=== PATIENT | male | born 1975 | race Caucasian/White ===

== ENCOUNTER 2022-06-21 11:52 | Inpatient (IN) ==
[2022-06-21] MEDS ORDERED: 0.9 % Sodium Chloride 500 ML IVC ONE ×3 (12:14→14:45)
[2022-06-21] MEDS ORDERED: 0.9 % Sodium Chloride 1,000 ML IVC ONE (12:59)
[2022-06-21 13:05] LABS: Basophils # 0.2 K/mcL (0.0-0.2); Basophils % 1.3 %; Eosinophils # 0.3 K/mcL (0.0-0.6); Eosinophils % 2.1 %; Hemoglobin 14.5 g/dL (12.9-16.9); Lymphocytes # 2.8 K/mcL (0.6-4.6); Mean Corpuscular HGB Conc 34.5 g/dL (31.6-35.5); Mean Corpuscular Volume 81.2 fL (83.0-100.0); Mean Platelet Volume 9.8 fL (9.4-12.4); Monocytes # 1.2 K/mcL (0.0-1.3); Monocytes % 10.3 %; Platelet Count 347 K/mcL (140-400); Red Blood Count 5.17 M/mcL (4.19-5.50); Red Cell Distribution Width 12.5 % (11.5-14.5); Segmented Neutrophils % 59.3 %; White Blood Count 11.8 K/mcL (4.3-11.1)
[2022-06-21 13:43] LABS: Calcium 9.3 mg/dL (8.6-10.3); Potassium 4.1 mEq/L (3.5-5.1)
[2022-06-21 13:44] LABS: Troponin I 0.03 ng/mL (< 0.04)
[2022-06-21] MEDS ORDERED: Norepinephrine 4 MG/254 ML IV.SOLN IVC ONE (14:10)
[2022-06-21] MEDS ORDERED: Norepinephrine 4 MG/254 ML IV.SOLN IVC SCH (14:15)
[2022-06-21] MEDS ORDERED: levoFLOXacin 750 MG/150 ML 750 MG/150 ML BAG IVPB ONE (14:24)
[2022-06-21] MEDS ORDERED: Lidocaine -MPF 1% 5 ML AMPUL INFILT ONE (14:25)
[2022-06-21] MEDS ORDERED: 0.9 % Sodium Chloride 500 ML ONE (14:37)
[2022-06-21] MEDS ORDERED: Ondansetron 4 MG/2 ML VIAL IVP PRN (16:30)
[2022-06-21] MEDS ORDERED: Naloxone 0.4 MG/ML INJ IVP PRN (16:30)
[2022-06-21] MEDS ORDERED: Dextrose Gel 15 GM/37.5 ML TUBE PO PRN ×2 (16:33)
[2022-06-21] MEDS ORDERED: D5% in Water 1,000 ML IVC PRN (16:33)
[2022-06-21 16:42] LABS: Influenza A PCR Negative (Negative); Influenza B PCR Negative (Negative); Resp. Syncytial Virus PCR Negative (Negative); SARS-CoV-2 by PCR (In House) Negative (Negative)
[2022-06-21] MEDS: Ringers Solution, Lactated 1,000 ML IVC SCH ×2 (19:00→20:56)
[2022-06-21] MEDS: Insulin LISPRO 300 UNITS/3 ML VIAL SUBQ SCH (19:18)
[2022-06-21] MEDS: *HR* Dextrose 50 % in Water (Syg) 50 ML SYRINGE IVP PRN ×2 (20:03→23:58)
[2022-06-21] MEDS: *HR* Heparin 5,000 UNIT/ML VIAL SQ SCH (22:32)
[2022-06-22] MEDS ORDERED: D5% in Lactated Ringers 1,000 ML IVC SCH ×2 (00:15→09:45)
[2022-06-22] MEDS: *HR* Dextrose 50 % in Water (Syg) 50 ML SYRINGE IVP PRN ×3 (02:35→10:05)
[2022-06-22 02:59] LABS: Basophils # 0.1 K/mcL (0.0-0.2); Basophils % 0.6 %; Eosinophils # 0.1 K/mcL (0.0-0.6); Eosinophils % 1.4 %; Hematocrit 29.5 % (37.5-50.1); Immature Granulocytes % 2.6 % (0-4); Lymphocytes # 1.5 K/mcL (0.6-4.6); Lymphocytes % 16.5 %; Mean Corpuscular HGB Conc 35.3 g/dL (31.6-35.5); Mean Corpuscular Hemoglobin 28.3 pg (28.0-33.3); Mean Corpuscular Volume 80.2 fL (83.0-100.0); Mean Platelet Volume 9.6 fL (9.4-12.4); Monocytes % 10.2 %; Neutrophils # 6.4 K/mcL (1.6-8.9); Platelet Count 235 K/mcL (140-400); Red Blood Count 3.68 M/mcL (4.19-5.50); Red Cell Distribution Width 12.2 % (11.5-14.5); Segmented Neutrophils % 68.7 %; White Blood Count 9.3 K/mcL (4.3-11.1)
[2022-06-22 03:15] LABS: Hemoglobin 10.4 g/dL (12.9-16.9)
[2022-06-22 03:17] LABS: Calcium 7.6 mg/dL (8.6-10.3); Magnesium 1.4 mg/dL (1.6-2.6); Phosphorous 3.9 mg/dL (2.7-4.5); Potassium 3.6 mEq/L (3.5-5.1)
[2022-06-22] MEDS ORDERED: Magnesium Sulfate 1 GM/102 ML PIGGYBACK IVPB ONE (03:20)
[2022-06-22] MEDS: *HR* Heparin 5,000 UNIT/ML VIAL SQ SCH ×2 (05:25→17:51)
[2022-06-22] MEDS ORDERED: Prochlorperazine 10 MG/2 ML VIAL IVP PRN (07:55)
[2022-06-22] MEDS: Insulin LISPRO 300 UNITS/3 ML VIAL SUBQ SCH ×4 (08:05→19:42)
[2022-06-22] MEDS ORDERED: Octreotide 50 MCG/ML INJ IVP ONE (09:38)
[2022-06-22] MEDS: Cyanocobalamin (B-12) 1,000 MCG TABLET PO SCH (09:56)
[2022-06-22] MEDS ORDERED: 0.9 % Sodium Chloride 250 ML IVC PRN (10:02)
[2022-06-22] MEDS ORDERED: 0.9 % Sodium Chloride 2,000 ML PRIME SCH (10:15)
[2022-06-22] MEDS: Octreotide 400 MCG in 0.9 % Sodium Chloride 100 ML IVC SCH (10:15)
[2022-06-22] MEDS ORDERED: *HR* Heparin 5,000 UNIT/ML VIAL ONE (13:27)
[2022-06-22] MEDS ORDERED: *HR* Heparin 10,000 UNIT/10 ML VIAL IV PRN (15:25)
[2022-06-22 15:57] LABS: Hepatitis B Surface Antibody < 3.10 mIU/mL
[2022-06-22 16:07] LABS: Hepatitis B Surface Antigen Nonreactive (Nonreactive)
[2022-06-22] MEDS: D5% in Lactated Ringers 1,000 ML IVC SCH (19:08)
[2022-06-22 20:54] LABS: Bilirubin,Urine Negative (Negative); Blood,Urine Negative (Negative); Clarity,Urine Clear (Clear); Color,Urine Light-Yellow (Yellow); Glucose,Urine (UA) 50 mg/dL (Normal); Hyaline Casts,Urine Few per lpf (None Seen); Ketones,Urine Negative (Negative); Leukocyte Esterase,Urine Negative (Negative); Mucus,Urine Few per lpf (None-Few); Nitrite,Urine Negative (Negative); PH,Urine 5.5 pH Units (5.0-8.0); Protein,Urine Trace mg/dL (Neg-Trace); RBC,Urine 0-3 per hpf (0-3); Specific Gravity,Urine 1.008 (1.010-1.025); Squamous Epithelial Cell,Urine Few per hpf (None-Few); Urobilinogen,Urine Normal (Normal)
[2022-06-22 21:07] LABS: Amphetamine Screen,Urine Negative ng/mL (Cutoff=1000); Barbiturate Screen,Urine Negative ng/mL (Cutoff=200); Benzodiazepines Screen,Urine Negative ng/mL (Cutoff=200); Cannabinoid Screen,Urine Positive ng/mL (Cutoff = 50); Cocaine Screen,Urine Negative ng/mL (Cutoff= 300); Opiate Screen,Urine Negative ng/mL (Cutoff=300); Phencyclidine Screen,Urine Negative ng/mL (Cutoff=25)
[2022-06-23] MEDS: D5% in Lactated Ringers 1,000 ML IVC SCH (02:34)
[2022-06-23 03:24] LABS: Hematocrit 27.9 % (37.5-50.1); Mean Corpuscular HGB Conc 35.8 g/dL (31.6-35.5); Mean Corpuscular Hemoglobin 28.4 pg (28.0-33.3); Mean Corpuscular Volume 79.3 fL (83.0-100.0); Mean Platelet Volume 9.4 fL (9.4-12.4); Platelet Count 244 K/mcL (140-400); Red Blood Count 3.52 M/mcL (4.19-5.50); Red Cell Distribution Width 12.2 % (11.5-14.5)
[2022-06-23 03:40] LABS: Calcium 7.9 mg/dL (8.6-10.3); Magnesium 1.6 mg/dL (1.6-2.6); Potassium 4.2 mEq/L (3.5-5.1)
[2022-06-23 03:42] LABS: Albumin 3.3 g/dL (3.5-5.7); Albumin/Globulin Ratio 1.7 (1.1-2.2); Bilirubin,Direct 0.1 mg/dL (0.0-0.2); Bilirubin,Indirect 0.4 mg/dL (0.0-1.0); Bilirubin,Total 0.5 mg/dL (0.3-1.0); Total Protein 5.3 g/dL (6.4-8.9)
[2022-06-23] MEDS: *HR* Heparin 5,000 UNIT/ML VIAL SQ SCH ×2 (05:23→22:09)
[2022-06-23] MEDS ORDERED: 0.9 % Sodium Chloride 250 ML IVC PRN (07:29)
[2022-06-23] MEDS: Octreotide 400 MCG in 0.9 % Sodium Chloride 100 ML IVC SCH ×2 (09:51→23:32)
[2022-06-23] MEDS: Insulin LISPRO 300 UNITS/3 ML VIAL SUBQ SCH ×4 (09:53→21:21)
[2022-06-23] MEDS: Cyanocobalamin (B-12) 1,000 MCG TABLET PO SCH (10:24)
[2022-06-23] MEDS ORDERED: *HR* Heparin 10,000 UNIT/10 ML VIAL IV PRN (18:19)
[2022-06-24 04:23] LABS: Hematocrit 27.9 % (37.5-50.1); Hemoglobin 9.9 g/dL (12.9-16.9); Mean Corpuscular HGB Conc 35.5 g/dL (31.6-35.5); Mean Corpuscular Hemoglobin 28.3 pg (28.0-33.3); Mean Corpuscular Volume 79.7 fL (83.0-100.0); Mean Platelet Volume 9.1 fL (9.4-12.4); Platelet Count 250 K/mcL (140-400); Red Cell Distribution Width 12.1 % (11.5-14.5)
[2022-06-24 04:37] LABS: Calcium 8.3 mg/dL (8.6-10.3); Magnesium 1.8 mg/dL (1.6-2.6); Potassium 3.7 mEq/L (3.5-5.1)
[2022-06-24] MEDS: *HR* Heparin 5,000 UNIT/ML VIAL SQ SCH ×2 (06:03→17:23)
[2022-06-24] MEDS: Magnesium Oxide 400 MG TABLET PO SCH (09:46)
[2022-06-24] MEDS: Cyanocobalamin (B-12) 1,000 MCG TABLET PO SCH (09:46)
[2022-06-24] MEDS: Insulin LISPRO 300 UNITS/3 ML VIAL SUBQ SCH ×4 (09:55→20:59)
[2022-06-25 03:46] LABS: Hemoglobin 10.8 g/dL (12.9-16.9); Mean Corpuscular Hemoglobin 28.6 pg (28.0-33.3); Mean Corpuscular Volume 79.6 fL (83.0-100.0); Mean Platelet Volume 9.3 fL (9.4-12.4); Platelet Count 281 K/mcL (140-400); Red Blood Count 3.77 M/mcL (4.19-5.50); Red Cell Distribution Width 12.2 % (11.5-14.5); White Blood Count 8.5 K/mcL (4.3-11.1)
[2022-06-25 04:03] LABS: Calcium 8.3 mg/dL (8.6-10.3); Potassium 3.5 mEq/L (3.5-5.1)
[2022-06-25] MEDS: *HR* Heparin 5,000 UNIT/ML VIAL SQ SCH (05:17)
[2022-06-25] MEDS: Magnesium Oxide 400 MG TABLET PO SCH (07:27)
[2022-06-25] MEDS: Cyanocobalamin (B-12) 1,000 MCG TABLET PO SCH (07:27)
[2022-06-25] MEDS: Insulin LISPRO 300 UNITS/3 ML VIAL SUBQ SCH ×2 (07:28→12:06)
[2022-06-25 11:03] VITALS: BP 108/62; O2SAT 98
[2022-06-25 11:28] VITALS: TEMP 98.4
[2022-06-25 15:12] VITALS: PULSE 101
== END 2022-06-25 16:32 | disposition home or self-care (01) | DRG 683 ==
LOC: EMEROOARM 11:52 → ICNU 11:52 → SUATTDRO 14:44 → 2NNU 16:29 → SUATTDRO 17:17 → 2NNU 17:57
PROVIDERS: ADMIT Pediatrics; ATTEND Internal Medicine